=== PATIENT | female | born 1955 | race Caucasian/White ===

== ENCOUNTER 2017-06-05 16:09 | Emergency (ER) | payer BC ==
[2017-06-05] MEDS ORDERED: Aspirin 325 MG Tab.EC PO ONE (16:39)
--- NOTE | 2017-06-05 19:00 | EDM.PDOC ---
ED HPI GENERAL MEDICAL PROBLEM - General Chief Complaint: Chest Pain Stated Complaint: CHEST PAIN X 2 DAYS Time Seen by Provider: 06/05/17 16:18 - History of Present Illness INITIAL COMMENTS - FREE TEXT/NARRATIVE: 62-year-old female presents emergency room with chest pain. Patient has been having chest pain that started on Wednesday she noticed this at work she has a somewhat stressful job. The chest pain comes and goes it is substernal radiates to the left does not go into her arms does not extend into her neck she has no associated abdominal pain with this she has no shortness of breath diaphoresis. Her past cardiac history is negative however she is treated for hyperlipidemia. She has a strong family history of vascular problems both her parents were vasculopath's. Patient's pain seems to be limited to when she is at work gets better when she goes home she does not awaken with chest pain. The patient is pain-free at this time. - Related Data Allergies Allergy/AdvReac Type Severity Reaction Status Date / Time bacitracin Allergy Other Verified 06/05/17 16:19 [From Neosporin ([id number])] meperidine [From Demerol] Allergy Other Verified 06/05/17 16:19 neomycin Allergy Other Verified 06/05/17 16:19 [From Neosporin ([id number])] polymyxin B Allergy Other Verified 06/05/17 16:19 [From Neosporin ([id number])] propoxyphene [From Darvon] Allergy Itching Verified 06/05/17 16:19 [id number] Reductase Allergy Other Verified 06/05/17 16:19 Inhibitor suture Allergy Other Verified 06/05/17 16:19 Home Meds: Home Meds Alpha Lipoic Acid 600 mg PO BID 06/05/17 [History] Aspirin 81 mg PO DAILY 06/05/17 [History] Cholecalciferol (Vitamin D3) [Vitamin D3] 2,000 unit PO DAILY 06/05/17 [History] Ezetimibe [Zetia] 10 mg PO DAILY 06/05/17 [History] FLUoxetine [PROzac] 20 mg pe PO DAILY 06/05/17 [History] Gabapentin [Neurontin] 100 mg PO BID 06/05/17 [History] Multivitamins [Tab-A-Kadeem] 1 tab PO DAILY 06/05/17 [History] Pravastatin [Pravachol] 10 mg PO DAILY 06/05/17 [History] Past Medical History HEENT History: Reports: Impaired Vision, Other (See Below) Other HEENT History: bleeding behind retina left eye with laser surgery repair ( April 2017) Respiratory History: Reports: Sleep Apnea Musculoskeletal History: Reports: Other (See Below) Other Musculoskeletal History: bilateral rotator cuff surgery Endocrine/Metabolic History: Reports: Diabetes, Type II - Past Surgical History HEENT Surgical History: Reports: Adenoidectomy, Tonsillectomy GI Surgical History: Reports: Other (See Below) Other GI Surgeries/Procedures: rectocele surgery repair Female Surgical History: Reports: Hysterectomy, Other (See Below) Other Female Surgeries/Procedures: bladder tie up Musculoskeletal Surgical History: Reports: Other (See Below) Other Musculoskeletal Surgeries/Procedures:: right great toe joint Social & Family History - Family History Family Medical History: Noncontributory - Tobacco Use Smoking Status *Q: Never Smoker Second Hand Smoke Exposure: No - Caffeine Use Caffeine Use: Reports: None - Recreational Drug Use Recreational Drug Use: No ED ROS GENERAL - Review of Systems Review Of Systems: See Below Constitutional: Reports: No Symptoms HEENT: Reports: No Symptoms Respiratory: Reports: No Symptoms Cardiovascular: Reports: Chest Pain (Recent chest pain at work she is pain-free at this time). Denies: Dyspnea on Exertion, Edema, Palpitations, Syncope GI/Abdominal: Reports: No Symptoms : Reports: No Symptoms Musculoskeletal: Reports: No Symptoms Skin: Reports: No Symptoms Neurological: Reports: No Symptoms ED EXAM, GENERAL - Physical Exam Exam: See Below Exam Limited By: No Limitations General Appearance: Alert, No Apparent Distress Head: Atraumatic, Normocephalic Neck: Normal Inspection, Supple, Non-Tender, Full Range of Motion Respiratory/Chest: No Respiratory Distress, Lungs Clear, Normal Breath Sounds Cardiovascular: Regular Rate, Rhythm, No Edema, No Murmur GI/Abdominal: Normal Bowel Sounds, Soft, Non-Tender Extremities: Normal Inspection, No Pedal Edema Neurological: Alert, Oriented, Normal Cognition Psychiatric: Normal Affect, Normal Mood EKG INTERPRETATION EKG Date: 06/05/17 Rhythm: NSR [place]: Normal P-Wave: Present QRS: Normal ST-T: Normal QT: Normal Comparison: NA - No Prior EKG EKG Interpretation Comments: Normal EKG Course - Vital Signs Last Recorded V/S: Last Vital Signs Temp 36.1 C 06/05/17 16:13 Pulse 80 06/05/17 16:13 Resp 18 06/05/17 16:13 BP 131/61 06/05/17 16:13 Pulse Ox 98 06/05/17 16:13 - Orders/Labs/Meds Orders: Active Orders 24 hr Category Date Time Status EKG Documentation Completion [RC] STAT Care 06/05/17 16:14 Active EKG Documentation Completion [RC] STAT Care 06/05/17 16:40 Active Peripheral IV Care [RC] . DIRECTED Care 06/05/17 16:39 Active Chest 1V Frontal [CR] Stat Exams 06/05/17 16:39 Taken Labs: Laboratory Tests 06/05/17 06/05/17 06/05/17 Range/Units 16:30 16:30 16:30 WBC 8.86 (3.98-10.04) K/mm3 RBC 4.53 (3.98-5.22) M/mm3 Hgb 13.5 (11.2-15.7) gm/L Hct 41.7 (34.1-44.9) % MCV 92.1 (79.4-94.8) fl MCH 29.8 (25.6-32.2) pg MCHC 32.4 (32.2-35.5) g/dl RDW Std Deviation 48.4 H (36.4-46.3) fL Plt Count 274 (182-369) K/mm3 MPV 11.4 (9.4-12.3) fl Neut % (Auto) 47.3 (34.0-71.1) % Lymph % (Auto) 38.1 (19.3-51.7) % [place] % (Auto) 8.4 (4.7-12.5) % Eos % (Auto) 5.4 (0.7-5.8) Baso % (Auto) 0.6 (0.1-1.2) % Neut # (Auto) 4.19 (1.56-6.13) K/mm3 Lymph # (Auto) 3.38 (1.18-3.74) K/mm3 [place] # (Auto) 0.74 H (0.24-0.36) K/mm3 Eos # (Auto) 0.48 H (0.04-0.36) K/mm3 Baso # (Auto) 0.05 (0.01-0.08) K/mm3 PT 10.6 (8.0-13.0) SECONDS INR 0.97 APTT 27 (22-36) SECONDS Sodium 140 (136-145) mEq/L Potassium 3.9 (3.5-5.1) mEq/L Chloride 104 (98-107) mEq/L Carbon Dioxide 31 (21-32) mEq/L Anion Gap 8.9 (5-15) BUN 22 H (7-18) mg/dL Creatinine 1.3 H (0.55-1.02) mg/dL Est Cr Clr Drug Dosing 44.19 mL/min Estimated GFR (MDRD) 42 (>60) mL/min BUN/Creatinine Ratio 16.9 (14-18) Glucose 116 H (80-115) mg/dL Calcium 9.7 (8.5-10.1) mg/dL Total Bilirubin 0.2 (0.2-1.0) mg/dL AST 25 (15-37) U/L ALT 35 (14-59) U/L Alkaline Phosphatase 74 (46-116) U/L Troponin I < 0.017 (0.00-0.056) ng/mL Total Protein 7.2 (6.4-8.2) g/dl Albumin 4.0 (3.4-5.0) g/dl Globulin 3.2 gm/dL Albumin/Globulin Ratio 1.3 (1-2) Meds: Medications Discontinued Medications Generic Name Dose Route Start Last Admin Trade Name Snow PRN Reason Stop Dose Admin Aspirin 325 mg 06/05/17 16:39 06/05/17 16:47 Ecotrin PO 06/05/17 16:40 325 mg ONETIME ONE Administration - Re-Assessments/Exams Free Text/Narrative Re-Assessment/Exam: 06/05/17 18:52 A she has remained symptom-free here in the emergency department did discuss the results of her heart score which is 3 she gets 0 points for her history been slightly suspicious normal EKG is 0 point her age gave her 1. risk factors gave her 2 points with family history her hyperlipidemia and obesity. Offered to do a second troponin the patient would like to hold off on this and go home she does agree to return for a stress Cardiolite Departure - Departure Time of Disposition: 18:55 Disposition: Home, Self-Care 01 Clinical Impression: Chest pain Referrals: Poppy Newby [employer] DIRECT[employer] [Primary Care Provider] - Forms: ED Department Discharge Additional Instructions: Return to the emergency room with any questions problems or worsening symptoms. Follow up with your stress test, this should be scheduled on Wednesday. Follow-up with your regular provider in the clinic 2 days after the stress test. Continue your daily aspirin and routine medications. - My Orders Last 24 Hours: My Active Orders 06/05/17 16:14 EKG Documentation Completion [RC] STAT 06/05/17 16:39 Peripheral IV Care [RC] . DIRECTED Chest 1V Frontal [CR] Stat 06/05/17 16:40 EKG Documentation Completion [RC] STAT - Assessment/Plan Last 24 Hours: My Active Orders 06/05/17 16:14 EKG Documentation Completion [RC] STAT 06/05/17 16:39 Peripheral IV Care [RC] . DIRECTED Chest 1V Frontal [CR] Stat 06/05/17 16:40 EKG Documentation Completion [RC] STAT
[2017-06-05 19:34] VITALS: BP 123/68
--- NOTE | 2017-06-06 08:32 | CR ---
Chest: Portable view of the chest was obtained. Comparison: Previous chest x-ray is not available. Heart size and mediastinum are within normal limits for portable technique. Lungs are clear. Bony structures are grossly intact. Impression: 1. Nothing acute is identified on portable chest x-ray. Diagnostic code #1
== END 2017-06-05 19:10 | disposition home or self-care (01) ==
LOC: JD.ED 16:09
DX: R07.9 Chest pain, unspecified (principal); E11.9 Type 2 diabetes mellitus without complications; Z88.8 Allergy status to other drugs, medicaments and biological substances; Z79.82 Long term (current) use of aspirin; Z98.890 Other specified postprocedural states; Z90.710 Acquired absence of both cervix and uterus
CPT/HCPCS: 36415; 71010; 80053; 84484; 85025; 85610; 85730; 93005; 99285; A9270; 99284

== ENCOUNTER 2023-02-28 08:30 | Emergency (ER) | payer MEDICARE, BC ==
[2023-02-28 08:43] VITALS: BP 133/80; PULSE 82
== END 2023-02-28 10:40 | disposition home or self-care (01) ==
LOC: JD.ED 08:30
DX: S50.02XA Contusion of left elbow, initial encounter (principal); S40.012A Contusion of left shoulder, initial encounter; S80.11XA Contusion of right lower leg, initial encounter; E66.9 Obesity, unspecified; Z79.82 Long term (current) use of aspirin; W19.XXXA Unspecified fall, initial encounter; W01.0XXA Fall on same level from slipping, tripping and stumbling without subsequent striking against object, initial encounter
CPT/HCPCS: 73030-26-LT; 73030-LT; 73080-26-LT; 73080-LT; 99282; 99283

== ENCOUNTER 2024-08-24 13:18 | Day surgery (SDC) | payer BC, MEDICARE ==
[2024-08-24] MEDS: Ofloxacin 0.3% Ophth Soln 5 ML Bottle EYELF SCH (14:49)
[2024-08-24] MEDS: Brimonidine 0.2% Ophth Soln 5 ML Bottle EYELF SCH (14:54)
[2024-08-24] MEDS: Phenylephrine 2.5% Ophth Soln 2 ML Bot EYELF SCH (14:58)
[2024-08-24] MEDS: Tropicamide 1% Ophth Soln 15 ML Bottle EYELF SCH (15:04)
[2024-08-24] MEDS: Tetracaine HCl/PF 0.5% 4 ML Bottle EYEBOTH SCH (15:44)
[2024-08-24] MEDS: Lidocaine 1% PF 2 ML SDV INJECT SCH (16:07)
[2024-08-24] MEDS: Cefuroxime 10 MG/ML SYRINGE EYELF SCH (16:17)
[2024-08-24] MEDS: Pilocarpine 4% Ophth Soln 15 ML Bot EYELF SCH (16:18)
[2024-08-24 16:36] VITALS: BP 158/98; PULSE 75
== END 2024-08-24 16:30 | disposition home or self-care (01) ==
LOC: JD.SDS 13:18
PROVIDERS: ATTEND Ophthalmology
DX: H25.812 Combined forms of age-related cataract, left eye (principal); H40.053 Ocular hypertension, bilateral; H18.413 Arcus senilis, bilateral; I10 Essential (primary) hypertension; E78.2 Mixed hyperlipidemia; F41.9 Anxiety disorder, unspecified; F32.A Depression, unspecified; Z79.899 Other long term (current) drug therapy
CPT/HCPCS: 66984; J0697; A9270-GY; J3490